=== PATIENT | male | born 1960 ===

== ENCOUNTER → 2017-04-09 | Outpatient (CLI) | payer OTHER ==
[~2017-04-09] MED LIST: ATOR20TA65 PO; DILT360C26 PO; EMPA10TA PO; GLIP10TA26 PO; GLY5 FT; HYDR12.558 PO; LIS20 PO; METF-420 PO; OLME1TAB71 PO; OLO2ODPT OU; PIO15 PO
--- NOTE | 2017-04-09 12:03 | RADIOLOGY IMAGING REPORT ---
FACILITY: [facility] - [place] PATIENT NAME: Jose Mansfield : 1960 MR: [id number] V: [id number] EXAM DATE: ORDERING PHYSICIAN: NIC COATES TECHNOLOGIST: Location: [facility] - [place] Patient: Jose Mansfield : 1960 Visit/Account:[id number] Date of Sevice: 04/09/2017 LIVER History: Evaluate liver. Right upper quadrant pain. Rule out gallstone disease. Comparison study: None Procedure: There has been satisfactory and complete grayscale ultrasonic evaluation of the abdomen. Findings: Liver: The liver has diffusely increased echotexture. No masses are seen. Surface contour is smooth and there is no ascites. Hepatopedal blood flow in the main portal vein. Biliary: The gallbladder is normal and there is no gallstone disease or biliary ductal dilatation. T he sonographic Perez sign is negative. The common bile duct measures 2.5 mm. Pancreas: The pancreas is partially obscured, but from what can be seen there are no peripancreatic f luid collections. Kidneys: No hydronephrosis of the right kidney. Aorta and IVC: Flow is identified in both the aorta and IVC. IMPRESSION: 1. Normal gallbladder without gallstone disease or biliary ductal dilatation. 2. Increased echotexture of the liver suggestive of fatty infiltration. Report Dictated By: Ronal Riley MD at 04/09/2017 11:57 AM Report E-Signed By: Ronal Riley MD at 04/09/2017 11:59 AM WSN:[email or web address]
== END ==
LOC: US 00:46
PROVIDERS: ATTEND Nurse Practitioner Primary Care
DX: R10.11 Right upper quadrant pain (principal)
CPT/HCPCS: 76705

== ENCOUNTER → 2017-04-24 | Outpatient (CLI) | payer OTHER ==
[~2017-04-24] MED LIST changes: +EMPA25TA PO; +SITA50TA6 PO
== END ==
LOC: LAB 15:30
PROVIDERS: ATTEND Internal Medicine
DX: E11.9 Type 2 diabetes mellitus without complications (principal); R10.9 Unspecified abdominal pain
CPT/HCPCS: 81001; 82043

== ENCOUNTER 2017-05-20 09:48 | Outpatient (RCR) | payer OTHER ==
[~2017-05-20] VITALS: Ht 170.2 cm; Wt 85.7 kg
--- NOTE | 2017-05-20 11:24 | Medical Nutrition Therapy ---
Nutrition Anthropometrics Height (Inches): 67 Weight (Pounds): 189 (stated) Valente Nutrition Score: Valente Nutrition Risk Score: Dietary Referral Nutrition Risk Factors: Nutrition Risk Comment: Physical Findings Physical Appearance: Overweight BMI 25-29 (BMI 29.6) Skin Appearance Skin Appearance: Edema Edema Location Modifier: Edema Location: Type of Edema: Degree of Edema: Gastrointestinal Symptoms GI Symtoms: Tube Present: Bowel Sounds: Recent Bowel Pattern: Stool Characteristics: Nutrition/Food History Breakfast: fruit/veg dring (25gm CGO) or 2c oatmeal/walnuts Lunch: sand or restaurant or meat, granola, nuts Dinner: meat, veg or salad Snacks: granola bar or nuts Nutritional Education Nutrition Education Topic: Diabetic Nutrition Learning Readiness: Eager Teaching Methods: Discussion, Handout, Demonstration Response to Teaching: Verbalize understanding Teaching Recipient: Patient Nutrition Counseling: Pt states he is with extensive fam hx of DM. Has DM for 5 yrs but recieved to prior education. Had been looking at sugar content and recently was told to look at CHO on labels. Reviewed glycemic response of various CHO. discussed plate method vs carb counting. Pt would like to lose 10#. Provided meal plan of 45gm CHO or 1 1/2c using plate method. Pt is scheduled for diabetes classes. Pt set up behavioral goal and support plan. Nutrition Monitoring & Eval RD Patient Assessment Time: 60 minutes Nutritional Comment: Provided 60 minute diabetes education focusing on nutrtion, behavioural goal and support plan Copies To Copies to: VIJAY CURIEL MD, BETH May 20, 2017 11:24
== END 2017-06-24 ==
LOC: DIET 09:48
PROVIDERS: ATTEND Internal Medicine
DX: Z71.3 Dietary counseling and surveillance (principal); E11.9 Type 2 diabetes mellitus without complications; Z83.3 Family history of diabetes mellitus
CPT/HCPCS: G0108 ×2

== ENCOUNTER → 2017-09-04 | Outpatient (CLI) | payer OTHER ==
[~2017-09-04] MED LIST changes: -METF-420 PO; +METF-421 PO; +SITA1TBM4 PO; +SULF-198 PO
--- NOTE | 2017-09-04 14:19 | RADIOLOGY IMAGING REPORT ---
[place]AC[place] [facility] [place]IENT NAME: Jose Mansfield : 1960 MR: [id number] V: [id number] EXAM DATE: ORDERING PHYSICIAN: VIJAY CURIEL TECHNOLOGIST: Location: [facility] Patient: Jose Mansfield : 1960 Visit/Account:[id number] Date of Sevice: 09/04/2017 CT of the right elbow INDICATION: IV drug abuse. Evaluate for lost needle. COMPARISON: Unavailable Technique: Axial CT images were obtained through the right elbow. Reformatted coronal and sagittal i mages were reviewed. One of the following dose optimization techniques was utilized in the performance of this exam: Autom ated exposure control; adjustment of the mA and/or kV according to the patient's size; or use of an i terative reconstruction technique. Specific details can be referenced in the facility's radiology C T exam operational policy. FINDINGS: There is a linear metallic foreign body identified within the soft tissues along the anterior margin of the elbow. Specifically, this is seen at the level of the antecubital fossa along its lateral karen in. This is seen just deep to the skin surface within the subcutaneous tissues overlying the brachior adialis muscle. For index purposes, this is seen on series #3 image 55. On the sagittal reconstructed images this is seen on series #5 image 23. On the coronal sequence, this is seen on series #4 image 19. This is almost certainly visible radiographically. On the coronal images, this metallic needle fr agment measures 8 mm in length. There is no associated fluid collection suggested. No evidence to sug gest abscess. No flecks of gas are seen. No acute osseous or joint centered abnormality is seen. There is no elbow joint effusion. There are e nthesopathic changes seen at the common extensor tendon origin from the lateral epicondyle. This sugg ests a prior injury and/or lateral epicondylitis. Correlate clinically. IMPRESSION: 1. 8mm linear metallic foreign body within the anterior soft tissues of the right elbow antecubital f monica. See full discussion above. This would be consistent with a retained needle fragment. 2. Findings suggesting prior lateral epicondylitis and/or extensor tendon injury at the right elbow. Report Dictated By: Royce Padron at 09/04/2017 2:07 PM Report E-Signed By: Royce Padron at 09/04/2017 2:16 PM WSN:[id number]
== END ==
LOC: CT 13:25
PROVIDERS: ATTEND Internal Medicine
DX: F19.10 Other psychoactive substance abuse, uncomplicated (principal); S40.851A Superficial foreign body of right upper arm, initial encounter

== ENCOUNTER → 2017-09-10 | Outpatient (CLI) | payer OTHER ==
--- NOTE | 2017-09-10 20:47 | RADIOLOGY IMAGING REPORT ---
FACILITY: [facility] PATIENT NAME: Mary Mansfield : 1960 MR: [id number] V: [id number] EXAM DATE: ORDERING PHYSICIAN: MARY VALDIVIA TECHNOLOGIST: Location: [facility] - [place] Patient: Mary Mansfield : 1960 Visit/Account:[id number] Date of Sevice: 09/10/2017 Exam: SOFT TISSUE HEAD NECK Indication: Locate Foriegn body in L. AC, US Comparison: Plain films 09/04/2017 Findings: Ultrasound localization of retained needle overlying the antecubital fossa was performed. A short 7 mm echogenic foreign body consistent with retained needle was located within the subcutaneou s tissues. This was marked for surgery. IMPRESSION: 1. Needle localization over the right antecubital fossa prior to surgery. Please reference the surge on's operative note Report Dictated By: Doug Snowden at 09/10/2017 8:42 PM Report E-Signed By: Doug Snowden at 09/10/2017 8:44 PM WSN:[id number]
== END ==
LOC: RAD 13:52
PROVIDERS: ATTEND Surgery
DX: Z02.9 Encounter for administrative examinations, unspecified (principal)
CPT/HCPCS: 76999

== ENCOUNTER 2018-03-26 16:13 | Emergency (ER) | payer OTHER ==
[~2018-03-26 16:13] MED LIST changes: +GLIP-179 PO; -GLIP10TA26 PO; -METF-421 PO; +METF-452 PO
--- NOTE | 2018-03-26 16:15 | ER Report ---
History and Physical Time Seen By MD: 16:15 HPI/ROS CHIEF COMPLAINT: flu HISTORY OF PRESENT ILLNESS: Pt has been staying with a friend who has the flu. PT started with symptoms 2-3 days ago. Pt c/o headache, fever, bodyache, chilld, dry cough, congestion. Went to see pcp today and had influenza test which was positive for A. Pt sent to ed due to pulse ox 84% on room air and pt usually does not require oxygen. REVIEW OF SYSTEMS: Constitutional: + fever, + chills. Eyes: No discharge. ENT: No sore throat. + congestion Cardiovascular: No chest pain, no palpitations. Respiratory: + cough, + shortness of breath. Gastrointestinal: No abdominal pain, no vomiting. Genitourinary: No hematuria. Musculoskeletal: No back pain. Skin: No rashes. Neurological: + headache. Allergies: Coded Allergies: No Known Drug Allergies (Verified , 03/26/18) Home Meds Active Scripts Empagliflozin (Jardiance) 25 Mg Tablet, 25 MG PO QAM, #90 TAB Prov:VIJAY CURIEL MD 01/28/18 Sitagliptin Phos/Metformin Hcl (JANUMET XR 50-1,000 MG TABLET) 1 Each Tbmp.24hr, 1 EACH PO BID, #180 TAB 3 Refills Prov:VIJAY CURIEL MD 08/21/17 Olopatadine (PATADAY) 0.05 Ml Soln, 1 GTT OU DAILY, #5 ML 3 Refills Prov:VIJAY CURIEL MD 08/21/17 Olmesartan Med/Amlodipine/Hctz (TRIBENZOR 40-10-12.5 MG TABLET) 1 Each Tablet, 1 EACH PO DAILY, #90 TAB 3 Refills pt unsure of dose "label falling of label" Prov:VIJAY CURIEL MD 04/24/17 Atorvastatin Calcium (ATORVASTATIN CALCIUM) 20 Mg Tablet, 1 TAB PO QHS, #90 TAB 3 Refills Prov:VIJAY CURIEL MD 04/24/17 Past Medical/Surgical History Pmhx: hyperlipid, htn, dm, Hep C (Treated) Smoking Status: Former Smoker (1ppd for 15 years quit 5 yrs ago) Hx Alcohol Use: Yes (occasional) Constitutional Vital Sign - Last 24 Hours 1/31/03/26/18 03/26/18 03/26/18 16:16 16:19 16:24 16:26 Temp 102.0 Pulse 114 107 Resp 16 B/P (MAP) 146/88 146/88 (107) Pulse Ox 93 93 O2 Delivery Nasal Cannula O2 Flow Rate 2.0 03/26/18 03/26/18 03/26/18 03/26/18 16:54 17:24 17:31 17:31 Pulse 103 87 89 Resp 27 23 18 Pulse Ox 94 96 95 O2 Delivery Nasal Cannula O2 Flow Rate 3.0 03/26/18 03/26/18 03/26/18 03/26/18 17:37 17:52 17:54 17:54 Pulse 93 103 Resp 18 27 Pulse Ox 85 90 90 O2 Delivery Room Air Nasal Cannula O2 Flow Rate 1.0 Physical Exam General Appearance: The patient is alert, has no immediate need for airway protection and no signs of toxicity. Eyes: Pupils equal and round no pallor or injection, EOMI ENT: no pharyngeal erythema or exudates, Mucous membranes are moist, TM are nl b/l Respiratory: There are no retractions, lungs are clear to auscultation. Cardiovascular: Regular rate and rhythm. pulses are equal and symmetrical Gastrointestinal: Abdomen is soft and non tender, no masses, bowel sounds normal, no guarding, no rigidity or rebound Neurological: Cranial nerves II-XII grossly intact, no sensory or motor loss Skin: Warm and dry, no rashes. Musculoskeletal: Neck is supple non tender, no vertebral tenderness Extremities are nontender, nonswollen and have full range of motion. DIFFERENTIAL DIAGNOSIS: After history and physical exam differential diagnosis was considered for inflluenza, pneumonia, bronchitis Medical Decision Making Data Points Result Diagram: 03/26/18 1646 03/26/18 1646 Laboratory Hematology Test 03/26/18 16:46 Red Blood Count 5.08 M/uL (4.00-5.60) Mean Corpuscular Volume 84.4 fL (80.0-96.0) Mean Corpuscular Hemoglobin 29.2 pg (26.0-33.0) Mean Corpuscular Hemoglobin Concent 34.6 g/dL (32.0-36.0) Red Cell Distribution Width 13.9 % (11.5-14.5) Mean Platelet Volume 9.6 fL (7.2-11.1) Neutrophils (%) (Auto) 85.2 % (39.4-72.5) Lymphocytes (%) (Auto) 6.4 % (17.6-49.6) Monocytes (%) (Auto) 6.9 % (4.1-12.4) Eosinophils (%) (Auto) 0.9 % (0.4-6.7) Basophils (%) (Auto) 0.6 % (0.3-1.4) Nucleated RBC Relative Count (auto) 0.0 /100WBC Neutrophils # (Auto) 6.4 K/uL (2.0-7.4) Lymphocytes # (Auto) 0.5 K/uL (1.3-3.6) Monocytes # (Auto) 0.5 K/uL (0.3-1.0) Eosinophils # (Auto) 0.1 K/uL (0.0-0.5) Basophils # (Auto) 0.0 K/uL (0.0-0.1) Nucleated RBC Absolute Count (auto) 0.00 K/uL Sodium Level 137 mmol/L (137-145) Potassium Level 3.8 mmol/L (3.5-5.0) Chloride Level 106 mmol/L (98-107) Carbon Dioxide Level 22 mmol/L (22-30) Blood Urea Nitrogen 14 mg/dl (9-21) Creatinine 1.00 mg/dl (0.66-1.25) Glomerular Filtration Rate Calc > 60.0 Random Glucose 145 mg/dl (75-110) Lactate 0.9 mmol/L (0.7-2.1) Calcium Level 8.9 mg/dl (8.4-10.2) Total Bilirubin 0.5 mg/dl (0.2-1.3) Aspartate Amino Transf (AST/SGOT) 50 U/L (0-35) Alanine Aminotransferase (ALT/SGPT) 63 U/L (0-56) Alkaline Phosphatase 64 U/L (0-126) Total Protein 7.2 g/dl (6.3-8.2) Albumin 4.4 g/dl (3.5-5.0) Chemistry Test 03/26/18 16:46 White Blood Count 7.5 k/uL (4.5-11.0) Red Blood Count 5.08 M/uL (4.00-5.60) Hemoglobin 14.8 g/dL (14.0-18.0) Hematocrit 42.9 % (42.0-52.0) Mean Corpuscular Volume 84.4 fL (80.0-96.0) Mean Corpuscular Hemoglobin 29.2 pg (26.0-33.0) Mean Corpuscular Hemoglobin Concent 34.6 g/dL (32.0-36.0) Red Cell Distribution Width 13.9 % (11.5-14.5) Platelet Count 149 K/uL (150-450) Mean Platelet Volume 9.6 fL (7.2-11.1) Neutrophils (%) (Auto) 85.2 % (39.4-72.5) Lymphocytes (%) (Auto) 6.4 % (17.6-49.6) Monocytes (%) (Auto) 6.9 % (4.1-12.4) Eosinophils (%) (Auto) 0.9 % (0.4-6.7) Basophils (%) (Auto) 0.6 % (0.3-1.4) Nucleated RBC Relative Count (auto) 0.0 /100WBC Neutrophils # (Auto) 6.4 K/uL (2.0-7.4) Lymphocytes # (Auto) 0.5 K/uL (1.3-3.6) Monocytes # (Auto) 0.5 K/uL (0.3-1.0) Eosinophils # (Auto) 0.1 K/uL (0.0-0.5) Basophils # (Auto) 0.0 K/uL (0.0-0.1) Nucleated RBC Absolute Count (auto) 0.00 K/uL Glomerular Filtration Rate Calc > 60.0 Lactate 0.9 mmol/L (0.7-2.1) Calcium Level 8.9 mg/dl (8.4-10.2) Total Bilirubin 0.5 mg/dl (0.2-1.3) Aspartate Amino Transf (AST/SGOT) 50 U/L (0-35) Alanine Aminotransferase (ALT/SGPT) 63 U/L (0-56) Alkaline Phosphatase 64 U/L (0-126) Total Protein 7.2 g/dl (6.3-8.2) Albumin 4.4 g/dl (3.5-5.0) EKG/Imaging Imaging napd ED Course/Re-evaluation Clinical Indication for ER IV: IV Access ED Course check cxr, labs 03/26/2018 6:03:49 pm Pt prefers to go home if possible and not be admitted. Pts labs are stable accept for flu. Pt understands if he goes home he will require oxygen. will have resp come down to order him home oxygen. Signed out p ending oxygen arrival from [facility]. 03/26/2018 6:11:52 pm Pt is off of work this week already. Will send script tamiflu to [facility]. Decision to Disposition Date: Mar 26, 2018 Decision to Disposition Time: 18:04 Depart Departure Latest Vital Signs Vital Signs Date Time Temp Pulse Resp B/P (MAP) Pulse Ox O2 Delivery O2 Flow Rate FiO2 03/26/18 17:54 90 Nasal Cannula 1.0 03/26/18 17:54 103 27 03/26/18 16:19 146/88 (107) 03/26/18 16:16 102.0 Impression: Primary Impression: Influenza A Additional Impression: Hypoxia Condition: Condition Unchanged Disposition: HOME OR SELF-CARE Referrals: VIJAY CURIEL MD (PCP) 5 Days New Scripts Oseltamivir Phosphate (TAMIFLU) 75 Mg Cap 75 MG PO BID, #10 CAP Prov: LANI SWIFT DO 03/26/18 Departure Forms: ER Transition Record, Home Oxygen, Nebulizer RX, Home Oxygen Company Chosen by Patient: [employer] Start Date of the Order: Mar 26, 2018 Dosage or Concentration (if applicable) - LPM: 2 Route of Administration (if applicable): Nasal Cannula Frequency of Use: Continuous Duration Home O2 Required: 99 Duration Units: Months Room Air Oxygen Saturation: 85 ER Prescribing Physician's Name: Lani Swift NPI Numbers for Local ER MDs: Jamison [id number] Medications Reconciliation, Patient Portal Information Patient Instructions: Influenza (DC) Additional Instructions: You have influenza A. Motrin (advil, ibuprofen) 600mg every 6 hours as needed for fever/bodyaches Tylenol 650mg every 4 hours as needed for fever/bodyaches Tamiflu one twice a day for 5 days. (This will help shorten your flu course) Influenza is contagious. If you need to go outside you should wear a mask. Oxygen 1-2 liters to help with your breathing. Albuterol 2 puffs every 4 hours as needed for cough or shortness of breath. If symptoms worsen then please return to emergency department. Problem Qualifiers LANI SWIFT DO Mar 26, 2018 16:15
[2018-03-26 16:19] VITALS: BP 146/88
[2018-03-26] MEDS ORDERED: OSELTAMIVIR PHOS 75 MG CAP PO ONE (16:20)
[2018-03-26] MEDS ORDERED: NS(*) 0.9% 1000 ML BAG 1,000 ML IV ONE (16:25)
[2018-03-26 16:58] LABS: PLATELET COUNT, AUTOMATED 149 K/uL (150-450)
[2018-03-26] MEDS ORDERED: ALBUTEROL/IPRATROPIUM 3 ML NEB NEB ONE (17:20)
--- NOTE | 2018-03-26 17:34 | RADIOLOGY IMAGING REPORT ---
FAC[place]: [facility] [place]IENT NAME: Jose Mansfield : 1960 MR: [id number] V: [id number] EXAM DATE: ORDERING PHYSICIAN: CR KAYE TECHNOLOGIST: Location: [facility] Patient: Jose Mansfield : 1960 Visit/Account:[id number] Date of Sevice: 03/26/2018 2 VIEWS CHEST INDICATION: Cough and fever for 2 weeks. COMPARISON: None available FINDINGS: Cardiomediastinal silhouette and pulmonary vessels within normal limits. There is no focal infiltrate or lobar consolidation. There is no pneumothorax or pleural effusion. No nodule. Upper abdomen is unremarkable. No acute bony abnormality. IMPRESSION: 1. No acute cardiopulmonary process. Report Dictated By: Aba Boyce at 03/26/2018 5:28 PM Report E-Signed By: Aba Boyce at 03/26/2018 5:29 PM WSN:[id number]
[2018-03-26] MEDS ORDERED: ALBUTEROL 8 GM INHALER INH ONE (18:05)
[2018-03-26] MEDS ORDERED: OSE75 PO (18:13)
[2018-03-26] MEDS ORDERED: IBUPROFEN 600 MG TAB PO ONE (18:15)
== END 2018-03-26 18:40 | disposition home or self-care (01) ==
LOC: ER 16:37
DX: J11.1 Influenza due to unidentified influenza virus with other respiratory manifestations (principal); R09.02 Hypoxemia
CPT/HCPCS: 36415; 71046; 83605; 85025; 87040; 94640; 96360; 99283; J3535; J7030; J7620; 82040; 82247; 82310; 82374; 82435; 82565; 82947; 84075; 84132; 84155; 84295; 84450; 84460; 84520

== ENCOUNTER → 2018-05-14 | Outpatient (CLI) | payer OTHER ==
[~2018-05-14] MED LIST changes: +BLOO-1037 TOP; +BLOO-960 MC; +LANC-165 TOP; +OSE75 PO
--- NOTE | 2018-05-14 21:22 | RADIOLOGY IMAGING REPORT ---
[place] [facility] [place] NAME: Jose Mansfield : 1960 MR: [id number] V: [id number] EXAM DATE: ORDERING PHYSICIAN: VIJAY CURIEL TECHNOLOGIST: [place] [facility] [place]: Jose Mansfield : 1960 Visit/Account:[id number] Date of Sevice: 05/14/2018 FOOT 3 VIEW LEFT Indication: Cyst. Comparison: None Available Findings: 3 views of the left foot were obtained. No evidence of fracture, dislocation, or acute osseous abnormality of the left foot. There is no focal soft tissue abnormality. No evidence of radiopaque foreign body. Mild degenerative changes of the first MTP joint. No visualized soft tissue mass. Small plantar calcaneal spur and punctate Achilles insertional enthesophyte. IMPRESSION: 1.No acute osseous abnormality of the left foot. No radiopaque mass. Report Dictated By: Rebel Denise MD at 05/14/2018 9:16 PM Report E-Signed By: Rebel Denise MD at 05/14/2018 9:17 PM WSN:[id number]
== END ==
LOC: RAD 16:13
PROVIDERS: ATTEND Internal Medicine
DX: M67.479 Ganglion, unspecified ankle and foot (principal)